=== PATIENT | female | born 1980 | race Caucasian/White ===

== ENCOUNTER → 2017-05-30 | Outpatient (CLI) | payer OTHER ==
[~2017-05-30] MED LIST: ANAPROX DS550 MG PO; BUSPAR15 MG PO; CELEXA20 MG PO; CIPRO500 MG PO; CIPROFLOXACIN500 MG PO; DEPAKOTE SPRIN125 M1 PO; FLUOXETINE HYDR20 M1 PO; IBUPROFEN 30 M800 MG PO; MACROBID100 M1 PO; MEDROL DOSEPAK4 MG PO; MOTRIN600 MG PO; MOTRIN800 MG PO; PAXIL10 MG PO; PREDNISONE20 M1 PO; SLEEPING AID25 MG PO; TRAMADOL HCL50 MG PO; ULTRAM50 MG PO; VISTARIL25 M2 PO; ZOLOFT25 MG PO
[2017-05-30 11:08] LABS: HEMOGLOBIN 14.7 g/dl (12.0-16.0); MEAN CELL VOLUME 88.7 fl (81.0-99.0); MEAN CORPUSCULAR HGB 29.6 pg (27.0-31.0); MEAN CORPUSCULAR HGB CONC 33.4 g/dl (33.0-37.0); MEAN PLATELET VOLUME 11.4 fl (9.6-12.3); RED BLOOD COUNT 4.96 10*6/uL (4.10-5.10); RED CELL DISTRI WIDTH 12.8 % (0-14.5)
[2017-05-30 11:24] LABS: BUN 8 mg/dl (7-24); CHLORIDE 104 mmol/L (98-107); CKMB 0.6 ng/ml (0.5-3.6); CPK 91 U/L (26-192); CREATININE 0.73 mg/dL (0.55-1.02); POTASSIUM 4.2 mmol/L (3.5-5.1); SODIUM 139 mmol/L (136-145); TROPONIN I < 0.015 ng/ml (<0.045)
== END | disposition home or self-care (01) ==
LOC: LAB 10:47
PROVIDERS: Nurse Practitioner Primary Care
DX: R07.9 Chest pain, unspecified (principal)

== ENCOUNTER → 2017-10-25 | Outpatient (CLI) | payer OTHER | END | disposition home or self-care (01) | LOC: RAD 14:31 | DX: M54.6 Pain in thoracic spine (principal); M54.5 Low back pain ==

== ENCOUNTER 2017-12-27 11:22 | Emergency (ER) | payer OTHER ==
[~2017-12-27] VITALS: Ht 154.9 cm; Wt 113.4 kg
[2017-12-27 11:23] VITALS: BP 114/85
[2017-12-27 12:30] LABS: BASO # 0.1 10*3/uL (0.0-0.1); BASO % 0.8 % (0.0-1.0); EOS # 0.1 10*3/uL (0.0-0.4); EOS % 0.8 % (1.0-4.0); HEMATOCRIT 43.8 % (37.0-47.0); HEMOGLOBIN 14.7 g/dl (12.0-16.0); LYMPH # 1.4 10*3/uL (1.3-4.4); LYMPH % 22.6 % (27.0-41.0); MEAN CELL VOLUME 86.7 fl (81.0-99.0); MEAN CORPUSCULAR HGB 29.1 pg (27.0-31.0); MEAN CORPUSCULAR HGB CONC 33.6 g/dl (33.0-37.0); MEAN PLATELET VOLUME 10.9 fl (9.6-12.3); MONO # 0.8 10*3/uL (0.1-1.0); MONO % 12.2 % (3.0-9.0); NEUT # 3.9 10*3/uL (2.3-7.9); NEUT % 63.3 % (47.0-73.0); PLATELET COUNT AUTOMATED 274 10*3/uL (130-400); RED BLOOD COUNT 5.05 10*6/uL (4.10-5.10); RED CELL DISTRI WIDTH 12.7 % (0-14.5); WHITE BLOOD COUNT 6.2 10*3/uL (4.8-10.8)
[2017-12-27 12:45] LABS: ALBUMIN 3.6 gm/dl (3.1-4.5); ALKALINE PHOSPHATASE 75 U/L (45-117); BUN 6 mg/dl (7-24); CHLORIDE 107 mmol/L (98-107); CREATININE 0.79 mg/dL (0.55-1.02); POTASSIUM 3.8 mmol/L (3.5-5.1); SGOT/AST 15 IU/L (3-35); SGPT/ALT 18 U/L (12-78); SODIUM 139 mmol/L (136-145); TOTAL PROTEIN 7.2 gm/dL (6.4-8.2)
[2017-12-27] MEDS ORDERED: TESSALON PERLE100 M1 PO (13:28)
[2017-12-27] MEDS ORDERED: SEPTDS PO (13:28)
[2017-12-27] MEDS ORDERED: FLONASE ALLERG9.9 ML NAS (13:28)
== END 2017-12-27 13:35 | disposition home or self-care (01) ==
LOC: ED 11:22
PROVIDERS: Physician Assistant
DX: J32.9 Chronic sinusitis, unspecified (principal); N92.1 Excessive and frequent menstruation with irregular cycle; Z79.899 Other long term (current) drug therapy

== ENCOUNTER 2018-10-08 21:36 | Inpatient (IN) | payer OTHER ==
[~2018-10-08] VITALS: Ht 154.9 cm; Wt 109.8 kg
[~2018-10-08 21:36] MED LIST changes: +FLONASE ALLERG9.9 ML NAS; +SEPTDS PO; +TESSALON PERLE100 M1 PO
[2018-10-08] MEDS ORDERED: SEPTDS PO (21:40)
[2018-10-08 21:41] VITALS: BP 127/64
[2018-10-08 22:20] LABS: BASO # 0.1 10*3/uL (0.0-0.1); BASO % 0.6 % (0.0-1.0); EOS # 0.2 10*3/uL (0.0-0.4); EOS % 2.8 % (1.0-4.0); HEMATOCRIT 43.5 % (37.0-47.0); HEMOGLOBIN 14.5 g/dl (12.0-16.0); LYMPH # 2.5 10*3/uL (1.3-4.4); LYMPH % 32.8 % (27.0-41.0); MEAN CELL VOLUME 88.4 fl (81.0-99.0); MEAN CORPUSCULAR HGB 29.5 pg (27.0-31.0); MEAN CORPUSCULAR HGB CONC 33.3 g/dl (33.0-37.0); MEAN PLATELET VOLUME 11.8 fl (9.6-12.3); MONO # 0.8 10*3/uL (0.1-1.0); MONO % 10.3 % (3.0-9.0); NEUT # 4.1 10*3/uL (2.3-7.9); NEUT % 53.1 % (47.0-73.0); PLATELET COUNT AUTOMATED 279 10*3/uL (130-400); RED BLOOD COUNT 4.92 10*6/uL (4.10-5.10); RED CELL DISTRI WIDTH 12.8 % (0-14.5); WHITE BLOOD COUNT 7.7 10*3/uL (4.8-10.8)
[2018-10-08 22:36] LABS: ALBUMIN 3.4 gm/dl (3.1-4.5); ALKALINE PHOSPHATASE 212 U/L (45-117); BUN 9 mg/dl (7-24); CHLORIDE 106 mmol/L (98-107); CREATININE 0.83 mg/dL (0.55-1.02); POTASSIUM 3.4 mmol/L (3.5-5.1); SGOT/AST 215 IU/L (3-35); SGPT/ALT 245 U/L (12-78); SODIUM 140 mmol/L (136-145); TOTAL PROTEIN 7.5 gm/dL (6.4-8.2)
[2018-10-08 22:43] LABS: BETA-HCG, QUANT < 1.0 mIU/mL (1-3)
[2018-10-08 23:38] VITALS: BP 116/68
[2018-10-09] VITALS (9 sets, daily range): BP systolic 97–130; BP diastolic 42–86
[2018-10-09] MEDS ORDERED: Motrin,Rufen800 MG PO (00:14)
[2018-10-09 05:55] LABS: BASO # 0.1 10*3/uL (0.0-0.1); BASO % 0.9 % (0.0-1.0); EOS # 0.3 10*3/uL (0.0-0.4); EOS % 4.6 % (1.0-4.0); HEMATOCRIT 39.9 % (37.0-47.0); HEMOGLOBIN 13.3 g/dl (12.0-16.0); LYMPH # 2.3 10*3/uL (1.3-4.4); LYMPH % 41.4 % (27.0-41.0); MEAN CELL VOLUME 88.7 fl (81.0-99.0); MEAN CORPUSCULAR HGB 29.6 pg (27.0-31.0); MEAN CORPUSCULAR HGB CONC 33.3 g/dl (33.0-37.0); MEAN PLATELET VOLUME 11.9 fl (9.6-12.3); MONO # 0.6 10*3/uL (0.1-1.0); MONO % 10.4 % (3.0-9.0); NEUT # 2.4 10*3/uL (2.3-7.9); NEUT % 42.2 % (47.0-73.0); PLATELET COUNT AUTOMATED 239 10*3/uL (130-400); RED CELL DISTRI WIDTH 12.9 % (0-14.5); WHITE BLOOD COUNT 5.7 10*3/uL (4.8-10.8)
[2018-10-09 06:29] LABS: BUN 8 mg/dl (7-24); CHLORIDE 107 mmol/L (98-107); CREATININE 0.72 mg/dL (0.55-1.02); POTASSIUM 3.5 mmol/L (3.5-5.1); SODIUM 140 mmol/L (136-145)
[2018-10-10] VITALS: BP 105/62
[2018-10-10 08:00] VITALS: BP 122/57
[2018-10-10 16:00] VITALS: BP 113/68
[2018-10-10 20:00] VITALS: BP 133/79
[2018-10-11] VITALS: BP 115/70
[2018-10-11 07:49] VITALS: BP 134/84
[2018-10-11 11:35] VITALS: BP 126/76
[2018-10-11] MEDS ORDERED: AUGMENTIN 875875 MG PO (11:37)
[2018-10-11] MEDS ORDERED: HYDROCODONE-AC1 EAC1 PO (11:37)
== END 2018-10-11 13:30 | disposition home or self-care (01) | DRG 580 ==
LOC: ED 21:36 → EDHOLD 22:58 → 5E 22:58
PROVIDERS: Internal Medicine; Student in an Organized Health Care Education/Training Program; ADMIT Internal Medicine
PROC: 0J9M0ZZ Drainage of Left Upper Leg Subcutaneous Tissue and Fascia, Open Approach (ICD-10-PCS; principal; 2018-10-09)
DX: L03.116 Cellulitis of left lower limb (principal); E44.0 Moderate protein-calorie malnutrition; Z68.41 Body mass index [BMI] 40.0-44.9, adult; L03.115 Cellulitis of right lower limb; R74.0 Nonspecific elevation of levels of transaminase and lactic acid dehydrogenase [LDH]; L02.416 Cutaneous abscess of left lower limb; L02.415 Cutaneous abscess of right lower limb; E87.6 Hypokalemia

== ENCOUNTER 2020-07-16 20:04 | Emergency (ER) | payer OTHER ==
[~2020-07-16] VITALS: Ht 154.9 cm; Wt 117.9 kg
[~2020-07-16 20:04] MED LIST changes: +AUGMENTIN 875875 MG PO; +HYDROCODONE-AC1 EAC1 PO; +Motrin,Rufen800 MG PO
[2020-07-16 20:18] VITALS: BP 136/76
[2020-07-16 20:49] LABS: BASO # 0.1 10*3/uL (0.0-0.1); BASO % 0.7 % (0.0-1.0); EOS # 0.2 10*3/uL (0.0-0.4); EOS % 1.6 % (1.0-4.0); LYMPH # 2.6 10*3/uL (1.3-4.4); LYMPH % 23.7 % (27.0-41.0); MEAN CELL VOLUME 88.8 fl (81.0-99.0); MEAN CORPUSCULAR HGB 29.2 pg (27.0-31.0); MEAN CORPUSCULAR HGB CONC 32.9 g/dl (33.0-37.0); MONO # 0.9 10*3/uL (0.1-1.0); MONO % 8.1 % (3.0-9.0); NEUT % 65.6 % (47.0-73.0); PLATELET COUNT AUTOMATED 314 10*3/uL (130-400); RED BLOOD COUNT 5.07 10*6/uL (4.10-5.10); RED CELL DISTRI WIDTH 13.1 % (0-14.5); WHITE BLOOD COUNT 10.7 10*3/uL (4.8-10.8)
[2020-07-16 20:49] LABS: BILIRUBIN Negative (Negative); BLOOD 2+ (Negative); CLARITY Cloudy (Clear); COLOR Yellow (Yellow); GLUCOSE Negative (Negative); KETONE Negative (Negative); LEUKO ESTERASE 2+ (Negative); NITRITE Negative (Negative); SPECIFIC GRAVITY 1.015 (1.001-1.030); UROBILINOGEN 0.2 E.U./dl (0.0-1.0)
[2020-07-16 21:04] LABS: ALBUMIN 3.6 gm/dl (3.1-4.5); ALKALINE PHOSPHATASE 80 U/L (45-117); BUN 9 mg/dl (7-24); CHLORIDE 105 mmol/L (98-107); CREATININE 0.73 mg/dL (0.55-1.02); LIPASE 143 U/L (73-393); POTASSIUM 3.7 mmol/L (3.5-5.1); SGOT/AST 13 IU/L (3-35); SGPT/ALT 20 U/L (12-78); SODIUM 138 mmol/L (136-145); TOTAL PROTEIN 7.5 gm/dL (6.4-8.2)
[2020-07-16 21:10] LABS: BACTERIA 1+; EPITHELIAL CELLS 31-40; WBC 31-40 wbc/hpf (0-5)
[2020-07-16] MEDS ORDERED: CEPHALEXIN500 M1 PO ×2 (22:45→22:46)
== END 2020-07-16 22:58 | disposition home or self-care (01) ==
LOC: ED 20:04
PROVIDERS: Hospitalist
DX: N39.0 Urinary tract infection, site not specified (principal); Z98.890 Other specified postprocedural states